=== PATIENT | male | born 1955 | race African-American/Black ===

== ENCOUNTER 2019-06-20 13:13 | Day surgery (SDC) | payer OTHER ==
[~2019-06-20] VITALS: Ht 175.3 cm; Wt 88.5 kg
[2019-06-20] MEDS ORDERED: PRAVACHOL 20MG20 MG PO (13:42)
[2019-06-20] MEDS ORDERED: COZAAR 50MG50 MG/TAB PO (13:42)
[2019-06-20] MEDS ORDERED: NATURAL POTASS595 MG PO (13:43)
[2019-06-20] MEDS ORDERED: FOLIC ACID0.4 MG PO (13:43)
[2019-06-20] MEDS ORDERED: GINKGO3 PO (13:44)
[2019-06-20] MEDS ORDERED: VITAMIN C500 MG PO (13:44)
[2019-06-20] MEDS ORDERED: MAGNESIUM250 M1 PO (13:44)
[2019-06-20] MEDS ORDERED: TURMERIC500 MG PO (13:45)
[2019-06-20] MEDS ORDERED: GINGER ROOT EX250 MG PO (13:46)
[2019-06-20] MEDS ORDERED: LYCOPENE10 M2 PO (13:46)
[2019-06-20] MEDS ORDERED: LUTEIN20 M1 PO (13:46)
[2019-06-20] MEDS ORDERED: NATURAL ODORLE400 MG PO (13:47)
[2019-06-20] MEDS ORDERED: FISH OIL 500 M1 EAC1 PO (13:47)
[2019-06-20] MEDS ORDERED: NATURAL FLAX1000 MG PO (13:47)
[2019-06-20] MEDS ORDERED: GINSENG PO (13:48)
[2019-06-20] MEDS ORDERED: SPIRULINA PO (13:51)
[2019-06-20] MEDS ORDERED: CAYENNE PO (13:51)
[2019-06-20] MEDS ORDERED: BEET ROOT PO (13:51)
[2019-06-20] MEDS ORDERED: ASTAXANTHIN PO (13:52)
[2019-06-20] MEDS ORDERED: ASPIRIN 32325 MG/TAB PO (13:55)
[2019-06-20 14:24] VITALS: BP 169/84; PULSE 84; TEMP 98.3
[2019-06-20 15:51] VITALS: TEMP 98.3
[2019-06-20 16:15] VITALS: BP 146/81; PULSE 78
--- NOTE | 2019-06-20 16:15 | NUR ---
Patient returns to room 8 per cart from PACU accompanied by Kinsey SHETTY and is awake and alert. Temp 97.5 and room air sats 98%. IV fluids infusing and site is free of redness. Siderails up x2 and call light in reach. Gauze dressing around penis dry and mesh panties in place. Taking sips of water.
[2019-06-20 16:30] VITALS: BP 137/81; PULSE 73
[2019-06-20] MEDS ORDERED: NORCO 325 MG-51 TAB PO (16:30)
--- NOTE | 2019-06-20 16:30 | NUR ---
Resting without complaints of pain or nausea.
[2019-06-20 16:45] VITALS: BP 170/77; PULSE 78
--- NOTE | 2019-06-20 16:45 | NUR ---
Assisted up to the bathroom and voids. Tolerates activity well. Eating applesauce and crackers.
[2019-06-20 17:00] VITALS: BP 141/76; PULSE 68
--- NOTE | 2019-06-20 17:00 | NUR ---
IV discontinued and site is free of redness. Given dismissal instructions and voices understanding of these. Provided script for Maxie and given office number for questions or concerns.
--- NOTE | 2019-06-20 17:30 | NUR ---
Patient dismissed to home per private vehicle and taken to the front door per wheelchair with instructions in hand. Assisted into car by Harika SHETTY.
== END 2019-06-20 17:30 | disposition home or self-care (01) ==
LOC: SDCO 13:13
DX: N47.2 Paraphimosis (principal); Z79.899 Other long term (current) drug therapy
CPT/HCPCS: J0690; J1100; J1170; J2405; J2704; J3010; J7120